=== PATIENT | male | born 1950 | race Caucasian/White ===

== ENCOUNTER 2019-02-01 16:40 | Emergency (ER) | payer MEDICARE, OTHER ==
[~2019-02-01] VITALS: Ht 175.3 cm; Wt 103.9 kg
--- OUTSIDE RECORDS SUMMARY | ~2019-02-01 | XMS | Encounter Summary ---
Demographics + + + | Address | [address] | | | [place] [address] | + + + | Home Phone | | + + + | Preferred Language | Unknown | + + + | Marital Status | Single | + + + | Pentecostalism Affiliation | 1059 | + + + | Race | Unknown | + + + | Ethnic Group | Unknown | + + + Author + + + | Author | [facility] | + + + | Organization | [facility] | + + + | Address | Unknown | + + + | Phone | Unavailable | + + + Support + + +---------+ + | Name | Relationship | Address | Phone | + + +---------+ + | None,Provided | ECON | Unknown | | + + +---------+ + Care Team Providers + +------+ + | Care Bookkeepers Supervisor Name | Role | Phone | + +------+ + | Joe Henry | PCP | | + +------+ + Encounter Details +--------+ + + + + | Date | Type | Department | Care Team | Description | +--------+ + + + + | 01/19/ | Documentati | [facility] | Ben Pope, | | | 2019 | on Only | [facility] Center | MD Radha Toussaint | | | | | Patient Access [id number] | [address] | | | | | [facility] [place], [address] | | | | | [place] [address] | | | | | | [phone] | | | +--------+ + + + + Social History + +-------+ +--------+------+ | Tobacco Use | Types | Packs/Day | Years | Date | | | | | Used | | + +-------+ +--------+------+ | Never Assessed | | | | | + +-------+ +--------+------+ + + + | Sex Assigned at | Date Recorded | | | | + + + | Not on file | | + + + as of this encounter Plan of Treatment Not on fileas of this encounter Visit Diagnoses Not on filein this encounter"
--- OUTSIDE RECORDS SUMMARY | ~2019-02-01 | XMS | Encounter Summary ---
Demographics + + + | Address | [address] | | | [place] [address] | + + + | Home Phone | | + + + | Preferred Language | Unknown | + + + | Marital Status | Single | + + + | Sabianism Affiliation | 1059 | + + + | Race | Unknown | + + + | Ethnic Group | Unknown | + + + Author + + + | Author | [facility] | + + + | Organization | [facility] | + + + | Address | Unknown | + + + | Phone | Unavailable | + + + Support + + +---------+ + | Name | Relationship | Address | Phone | + + +---------+ + | None,Provided | ECON | Unknown | | + + +---------+ + Care Team Providers + +------+ + | Care Dynamics Ax Solution Architect Name | Role | Phone | + +------+ + | Henry Diaz DO | PCP | | + +------+ + Reason for Referral MRI/CAT Scan (Routine) + +--------+ + + + + | Status | Reason | Specialty | Diagnoses / | Referred By | Referred To | | | | | Procedures | Contact | Contact | + +--------+ + + + + | Pending | | Radiology | Diagnoses | Niko, | [facility] [address] | | Review | | | Gross | Ben Perea MD | [address] | | | | | hematuria | [address] | | | | | Procedures | [place] | [place], [place] | | | | | CT urogram | Bl[address] | [address] Phone: | | | | | abdomen | [place], [place] | [phone] | | | | | pelvis with | [address] | | | | | | and without | Phone: | | | | | | contrast 3D | [phone] | | | | | | reconstructi | Fax: | | | | | | on images | [phone] | | + +--------+ + + + + MRI/CAT Scan (Routine) + +--------+ + + + + | Status | Reason | Specialty | Diagnoses / | Referred By | Referred To | | | | | Procedures | Contact | Contact | + +--------+ + + + + | Pending | | Radiology | Diagnoses | Niko, | [facility] [address] | | Review | | | Gross | Ben Perea MD | [address] | | | | | hematuria | [address] | | | | | Procedures | [place] | [place], [place] | | | | | CT urogram | Blvd | [address] Phone: | | | | | abdomen | [place], [place] | [phone] | | | | | pelvis with | [address] | | | | | | and without | Phone: | | | | | | contrast 3D | [phone] | | | | | | reconstructi | Fax: | | | | | | on images | [phone] | | + +--------+ + + + + Reason for Visit MRI/CAT Scan (Routine) + +--------+ + + + + | Status | Reason | Specialty | Diagnoses / | Referred By | Referred To | | | | | Procedures | Contact | Contact | + +--------+ + + + + | Pending | | Radiology | Diagnoses | Niko, | [facility] [address] | | Review | | | Gross | Ben Perea MD | [address] | | | | | hematuria | [address] | | | | | Procedures | [place] | [place], [place] | | | | | CT urogram | Blvd | [address] Phone: | | | | | abdomen | [place], [place] | [phone] | | | | | pelvis with | [address] | | | | | | and without | Phone: | | | | | | contrast 3D | [phone] | | | | | | reconstructi | Fax: | | | | | | on images | [phone] | | + +--------+ + + + + Encounter Details +--------+ + + + + | Date | Type | Department | Care Team | Description | +--------+ + + + + | 01/19/ | Hospital | [facility] | Ben Pope, | Altagracia hematuria | | 2019 | Encounter | [facility] | MD Radha Toussaint | | | | | CT [address] | [place], [place] | | | | | [address] | [id number] | | | | | [place] [address] | | | | | | [phone] | | | +--------+ + + + [...] Treatment Not on fileas of this encounter Procedures + +--------+ + + + | Procedure Name | Priori | Date/Time | Associated Diagnosis | Comments | | | ty | | | | + +--------+ + + + | CT UROGRAM ABDOMEN | Routin | 01/19/2019 | Gross hematuria | Results for this | | PELVIS W WO CONTRAST | e | 8:02 AM | | procedure are in the | | | | PDT | | results section. | + +--------+ + + + | POC CREATININE | Routin | 01/19/2019 | | Results for this | | | e | 7:31 AM | | procedure are in the | | | | PDT | | results section. | + +--------+ + + + in this encounter Results CT urogram abdomen pelvis with and without contrast 3D reconstruction images (01/19/2019 8 :02 AM) + + + | Impressions | Performed At | + + + | 1. No urinary calculus, hydronephrosis or urinary mass identified. | [facility] | | 2. Bilateral renal cysts which extend into the pelvis and cause mass | RADIOLOGY | | effect on the upper collecting system. 3. Prostatomegaly. Signed by: | | | Cristy Kc Jade Sign Date/Time: 01/19/2019 4:24 PM | | + + + + + + | Narrative | Performed At | + + + | CT ABDOMEN AND PELVIS WITHOUT AND WITH CONTRAST (CPT) CT UROGRAPHY | [facility] | | CLINICAL INFORMATION: Gross hematuria COMPARISON: None PROCEDURE: | RADIOLOGY | | Axial images through the abdomen and pelvis with no intravenous | | | contrast. Subsequent images of the abdomen and pelvis during | | | intravenous administration of 125mL Omnipaque 350 in two divided | | | doses, with a 9 minute delay after the first dose. No oral contrast | | | was administered. Multiplanar reconstructions. At least one of the | | | following CT dose optimization techniques were used: Automated | | | exposure control; Adjustment of mA and/or kV according to patient | | | size; Use of iterative reconstruction technique. FINDINGS: KIDNEYS, | | | URETERS AND BLADDER: No solid mass, cortical scarring or asymmetric | | | enhancement in the kidneys. No hydronephrosis. No calculus or mass in | | | the collecting system, ureters or bladder. Bilateral cortical and | | | parapelvic cysts cause mass effect on the calices and renal pelves | | | which remain nondilated. LUNG BASES: No significant pulmonary | | | abnormality. No pleural effusion or pneumothorax. ABDOMEN Liver and | | | Biliary: No gallbladder or biliary abnormality. No significant liver | | | abnormality. Pancreas, Spleen and Adrenals: No pancreatitis or | | | pancreatic mass. No splenomegaly, splenic mass or splenic hemorrhage. | | | No significant adrenal abnormality. ABDOMEN AND PELVIS Bowel: No | | | small bowel or colonic dilation or adjacent inflammation. Surgically | | | absent appendix. Colonic diverticulosis without diverticulitis. | | | Vessels: No significant abnormality in the aorta or its proximal | | | branches. No significant abnormality in the portal veins, mesenteric | | | veins or systemic veins. Lymph Nodes: No adenopathy. Peritoneum and | | | Retroperitoneum: No intraperitoneal free air, ascites or peritoneal | | | mass. No significant retroperitoneal abnormality. PELVIS | | | Genitourinary: No pelvic mass and no significant urethral abnormality. | | | Prostatomegaly at 5.6 x 6.1 x 7.5 cm. BODY WALL Soft Tissues: No | | | bowel or inflamed fat containing hernia, mass or hemorrhage. Bones: | | | No acute fracture or vertebral end plate destruction. No lytic or | | | blastic lesion. | | + + + + + | Procedure Note | + + | Jong, Rad Results In 01/19/2019 4:[address] ABDOMEN AND PELVIS WITHOUT AND WITH | | CONTRAST (CPT)CT UROGRAPHYCLINICAL INFORMATION:Gross | | hematuriaCOMPARISON:NonePROCEDURE:Axial images through the abdomen and pelvis with no | | intravenouscontrast. Subsequent images of the abdomen and pelvis duringintravenous | | administration of 125mL Omnipaque 350 in two divided doses,with a 9 minute delay after | | the first dose. No oral contrast wasadministered. Multiplanar reconstructions.At least | | one of the following CT dose optimization techniques wereused: Automated exposure | | control; Adjustment of mA and/or kV accordingto patient size; Use of iterative | | reconstruction technique.FINDINGS:KIDNEYS, URETERS AND BLADDER: No solid mass, cortical | | scarring orasymmetric enhancement in the kidneys. No hydronephrosis. No calculusor mass | | in the collecting system, ureters or bladder. Bilateralcortical and parapelvic cysts | | cause mass effect on the calices andrenal pelves which remain nondilated.LUNG BASES: No | | significant pulmonary abnormality. No pleural effusionor pneumothorax.ABDOMENLiver and | | Biliary: No gallbladder or biliary abnormality. Nosignificant liver | | abnormality.Pancreas, Spleen and Adrenals: No pancreatitis or pancreatic mass. | | Nosplenomegaly, splenic mass or splenic hemorrhage. No significantadrenal | | abnormality.ABDOMEN AND PELVISBowel: No small bowel or colonic dilation or adjacent | | inflammation.Surgically absent appendix. Colonic diverticulosis | | withoutdiverticulitis.Vessels: No significant abnormality in the aorta or its | | proximalbranches. No significant abnormality in the portal veins, mesentericveins or | | systemic veins.Lymph Nodes: No adenopathy.Peritoneum and Retroperitoneum: No | | intraperitoneal free air, ascites orperitoneal mass. No significant retroperitoneal | | abnormality.PELVISGenitourinary: No pelvic mass and no significant urethral | | abnormality.Prostatomegaly at 5.6 x 6.1 x 7.5 cm.BODY WALLSoft Tissues: No bowel or | | inflamed fat containing hernia, mass orhemorrhage.Bones: No acute fracture or vertebral | | end plate destruction. No lyticor blastic lesion.IMPRESSION:1. No urinary calculus, | | hydronephrosis or urinary mass identified.2. Bilateral renal cysts which extend into the | | pelvis and cause masseffect on the upper collecting system.3. Prostatomegaly.Signed by: | | Cristy Kc JadeSign Date/Time: 01/19/2019 4:24 PM | |ABDOMEN AND PELVIS | |Bowel: No small bowel or colonic dilation or adjacent inflammation. | |Surgically absent appendix. Colonic diverticulosis without | |diverticulitis. | |Vessels: No significant abnormality in the aorta or its proximal | |branches. No significant abnormality in the portal veins, mesenteric | |veins or systemic veins. | |Lymph Nodes: No adenopathy. | |Peritoneum and Retroperitoneum: No intraperitoneal free air, ascites or | |peritoneal mass. No significant retroperitoneal abnormality. | |PELVIS | |Genitourinary: No pelvic mass and no significant urethral abnormality. | |Prostatomegaly at 5.6 x 6.1 x 7.5 cm. | |BODY WALL | |Soft Tissues: No bowel or inflamed fat containing hernia, mass or | |hemorrhage. | |Bones: No acute fracture or vertebral end plate destruction. No lytic | |or blastic lesion. | |IMPRESSION: | |1. No urinary calculus, hydronephrosis or urinary mass identified. | |2. Bilateral renal cysts which extend into the pelvis and cause mass | |effect on the upper collecting system. | |3. Prostatomegaly. | |Signed by: Cristy Kc Jade | |Sign Date/Time: 01/19/2019 4:24 PM | + + + + + + + | Performing | Address | City/State/Zipcode | Phone Number | | Organization | | | | + + + + + | [facility] | [address] | [place] [address] | | + + + + + POC creatinine (01/19/2019 7:31 AM) + + + + + | Component | Value | Ref Range | Performed At | + + + + + | POC CREATININE | 1.1 | 0.7 - 1.5 mg/dL | [facility] | + + + + + | Estimated GFR (Calc) | >60Comment: GFR <60: | mL/min/1.73m2 | [facility] | | | CHRONIC KIDNEY DISEASE, | | | | | IF FOUND OVER A 3 MONTH | | | | | PERIOD.GFR <15: KIDNEY | | | | | FAILURE.FOR | | | | | AMERICANS, MULTIPLY THE | | | | | CALCULATED GFR BY | | | | | 1.210.This eGFR is | | | | | calculated using the | | | | | MDRD IDMS traceable | | | | | equation.Testing | | | | | performed at [facility];[address];[place], [place] | | | | | [address] | | | + + + + + + + + + + | Performing | Address | City/State/Zipcode | Phone Number | | Organization | | | | + + + + + | [facility] | [address] | [place] [address] | | + + + + + in this encounter Visit Diagnoses + + | Diagnosis | + + | Gross hematuria | + + Administered Medications + +--------+ +---------+------+------+ | Medication Order | MAR | Action | Dose | Rate | Site | | | Action | Date | | | | + +--------+ +---------+------+------+ | iohexol (OMNIPAQUE 350) 350 | Given | | 125 mLs | | | | mg/mL injection 125 mL 125 mL, | | 9 07:41 | | | | | Intravenous, Img Once PRN, Other, | | PDT | | | | | Starting [facility] 01/19/19 at 0719, | | | | | | | For 1 dose | | | | | | + +--------+ +---------+------+------+ +---+---+ | | | +---+---+ in this encounter"
--- OUTSIDE RECORDS SUMMARY | ~2019-02-01 | XMS | Encounter Summary ---
Demographics + + + | Address | [address] | | | [place] [address] | + + + | Home Phone | | + + + | Preferred Language | Unknown | + + + | Marital Status | Single | + + + | Latter-Day Affiliation | 1059 | + + + | Race | Unknown | + + + | Ethnic Group | Unknown | + + + Author + + + | Author | [facility] | + + + | Organization | [facility] | + + + | Address | Unknown | + + + | Phone | Unavailable | + + + Support + + +---------+ + | Name | Relationship | Address | Phone | + + +---------+ + | None,Provided | ECON | Unknown | | + + +---------+ + Care Team Providers + +------+ + | Care Yard Coordinator Name | Role | Phone | + [...] | Radiology | Diagnoses | Niko, | [facility] [address] | | Review | | | Gross | Ben Perea MD | [address] | | | | | hematuria | [address] | | | | | Procedures | [place] | [place], [place] | | | | | CT urogram | Blvd | [address] Phone: | | | | | abdomen | [place], [place] | [phone] | | | | | pelvis with | [address] | | | | | | and without | Phone: | | | | | | contrast 3D | [phone] | | | | | | reconstructi | Fax: | | | | | | on images | [phone] | | + +--------+ + + + + MRI/CAT Scan (Routine) + +--------+ + + + + | Status | Reason | Specialty | Diagnoses / | Referred By | Referred To | | | | | Procedures | Contact | Contact | + +--------+ + + + + | Pending | | Radiology | Diagnoses | Niko, | [facility] [address] | | Review | | | Gross | Ben Perea MD | [address] | | | | | hematuria | [address] | | | | | Procedures | [place] | [place], [place] | | | | | CT urogram | Blvd | [address] Phone: | | | | | abdomen | [place], [place] | [phone] | | | | | pelvis with | [address] | | | | | | and without | Phone: | | | | | | contrast 3D | [phone] | | | | | | reconstructi | Fax: | | | | | | on images | [phone] | | + +--------+ + + + + Reason for Visit MRI/CAT Scan (Routine) + +--------+ + + + + | Status | Reason | Specialty | Diagnoses / | Referred By | Referred To | | | | | Procedures | Contact | Contact | + +--------+ + + + + | Pending | | Radiology | Diagnoses | Niko, | [facility] | | Review | | | Gross | Ben Perea MD | [address] | | | | | hematuria | [address] | | | | | Procedures | [place] | [place], [place] | | | | | CT urogram | Blvd | [address] Phone: | | | | | abdomen | [place], [place] | [phone] | | | | | pelvis with | [address] | | | | | | and without | Phone: | | | | | | contrast 3D | [phone] | | | | | | reconstructi | Fax: | | | | | | on images | [phone] | | + +--------+ + + + + Encounter Details +--------+ + + + + | Date | Type | Department | Care Team | Description | +--------+ + + + + | 01/19/ | Hospital | [facility] | Ben Pope, | Altagracia hematuria | | 2019 | Encounter | [facility] | MD Radha Toussaint | | | | | CT [address] | [place], [place] | | | | | [address] | [id number] | | | | | [place] [address] | | | | | | [phone] | | | +--------+ + + + [...] [facility] | [address] | [place] [address] | | + + + + + [...] | | | | | performed at [facility];[address] | | | | [address];[place], [place] | | | | | [address] | | | + + + + + + + + + + | Performing | Address | City/State/Zipcode | Phone Number | | Organization | | | | + + + + + | [facility] | [address] | [place] [address] | | + + + + + [...] PDT | | | | | Starting [facility] 01/19/19 at 0719, | | | | | | | For 1 dose | | | | | | + +--------+ +---------+------+------+ +---+---+ | | | +---+---+ in this encounter"
--- OUTSIDE RECORDS SUMMARY | ~2019-02-01 | XMS | Encounter Summary ---
Demographics + + + | Address | [address] | | | [place] [address] | + + + | Home Phone | | + + + | Preferred Language | Unknown | + + + | Marital Status | Single | + + + | Yazdanism Affiliation | 1059 | + + + | Race | Unknown | + + + | Ethnic Group | Unknown | + + + Author + + + | Author | [facility] | + + + | Organization | [facility] | + + + | Address | Unknown | + + + | Phone | Unavailable | + + + Support + + +---------+ + | Name | Relationship | Address | Phone | + + +---------+ + | None,Provided | ECON | Unknown | | + + +---------+ + Care Team Providers + +------+ + | Care Radiology Manager Name | Role | Phone | + [...] | Radiology | Diagnoses | Niko, | [facility] [address] | | Review | | | Gross | Ben Perea MD | [address] | | | | | hematuria | [address] | | | | | Procedures | [place] | [place], [place] | | | | | CT urogram | Blvd | [address] Phone: | | | | | abdomen | [place], [place] | [phone] | | | | | pelvis with | [address] | | | | | | and without | Phone: | | | | | | contrast 3D | [phone] | | | | | | reconstructi | Fax: | | | | | | on images | [phone] | | + +--------+ + + + + Encounter Details +--------+ + + + + | Date | Type | Department | Care Team | Description | +--------+ + + + + | 01/09/ | Ancillary | [facility] | Ben Pope, | Altagracia hematuria | | 2019 | Orders | [facility] | MD Radha Toussaint | | | | | CT [address] | Blvd [place], [place] | | | | | [facility] [address] | [phone] | | | | | [place] [address] | | | | | | [phone] | | | +--------+ + + + [...] Treatment Not on fileas of this encounter Results CT urogram abdomen pelvis with and without contrast 3D reconstruction images (01/19/2019 8 :02 AM) + + + | Impressions | Performed At | + + + | 1. No urinary calculus, hydronephrosis or urinary mass identified. | [facility] | | 2. Bilateral renal cysts which [...] PELVIS WITHOUT AND WITH | | CONTRAST ([facility])CT UROGRAPHYCLINICAL INFORMATION:Gross | | hematuriaCOMPARISON:NonePROCEDURE:Axial images through [...] + + | [facility] | [address] | [place] [address] | | + + + + + in this encounter Visit Diagnoses + + | Diagnosis | + + | Gross hematuria | + +"
--- OUTSIDE RECORDS SUMMARY | ~2019-02-01 | XMS | Clinical Summary ---
Demographics + + + | Address | [address] | | | [place] [address] | + + + | Home Phone | | + + + | Preferred Language | Unknown | + + + | Marital Status | | + + + | Congregation Affiliation | 1059 | + + + | Race | Unknown | + + + | Ethnic Group | Unknown | + + + Author + + + | Author | [facility] | | | and [place] | + + + | Organization | [facility] | | | and [place] | + + + | Address | Unknown | + + + | Phone | Unavailable | + + + Support + + +---------+ + | Name | Relationship | Address | Phone | + + +---------+ + | Yue Thomson | ECON | Unknown | | + + +---------+ + | None,Provided | ECON | Unknown | | + + +---------+ + Care Team Providers + +------+ + | Care Notching Machine Operator Name | Role | Phone | + +------+ + PP | Unavailable | + +------+ + Allergies + + + +--------+ + | Active Allergy | Reactions | Severity | Noted | Comments | | | | | Date | | + + + +--------+ + | Griseofulvin | | | | | | Microsize | | | | | + + + +--------+ + | Penicillins | | | | | + + + +--------+ + | Sulfa Antibiotics | | | | | + + + +--------+ + Medications + + + +---------+------+------+-------+ | Medication | Sig | Dispensed | Refills | Star | End | Statu | | | | | | t | Date | s | | | | | | Date | | | + + + +---------+------+------+-------+ | lamotrigine | 1/2 twice dialy | | 0 | 09/1 | | Activ | | (LAMICTAL) 200 MG | | | | 3/20 | | e | | tablet | | | | 12 | | | + + + +---------+------+------+-------+ | cholecalciferol | Take 1,000 Units by | | 0 | 09/1 | | Activ | | (CVS VITAMIN D3) | mouth Daily. | | | 3/20 | | e | | 1000 UNITS CAPS | | | | 12 | | | + + + +---------+------+------+-------+ | beta carotene | Take 25,000 Units by | | 0 | 09/1 | | Activ | | 62837 UNITS capsule | mouth Daily. | | | 3/20 | | e | | | | | | 12 | | | + + + +---------+------+------+-------+ | Sumner-3 Fatty | three daily | | 0 | 09/1 | | Activ | | Acids (FISH OIL | | | | 3/20 | | e | | BURP-LESS) 1200 MG | | | | 12 | | | | CAPS | | | | | | | + + + +---------+------+------+-------+ | dutasteride | Take 0.5 mg by mouth | | 0 | 09/1 | | Activ | | (AVODART) 0.5 mg | Daily. | | | 3/20 | | e | | capsule | | | | 12 | | | + + + +---------+------+------+-------+ | testosterone | as needed | | 0 | 09/1 | | Activ | | (ANDROGEL) 2.5 g gel | | | | 3/20 | | e | | | | | | 12 | | | + + + +---------+------+------+-------+ | sildenafil | Take 100 mg by mouth | | 0 | 09/1 | | Activ | | (VIAGRA) 100 MG | as needed. 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 | + + Last Filed Vital Signs + + + + | Vital Sign | Reading | Time Taken | + + + + | Blood Pressure | 118/66 | 03/02/2012 0000 PDT | + + + + | Pulse | - | - | + + + + | Temperature | - | - | + + + + | Respiratory Rate | - | - | + + + + | Oxygen Saturation | - | - | + + + + | Inhaled Oxygen | - | - | | Concentration | | | + + + + | Weight | 114.5 kg (252 lb 8 | 03/02/2012 0000 PDT | | | oz) | | + + + + | Height | 175.3 cm (5' 9") | 11/23/2011 0000 PST | + + + + | Body Mass Index | 37.29 | 11/23/2011 0000 PST | + + + + Plan of Treatment + + + + + | Health Maintenance | Due Date | Last Done | Comments | + + + + + | Vaccine: | | | | | Dtap/Tdap/Td (1 - | 8 | | | | Tdap) | | | | + + + + + | Vaccine: Zoster (1 | | | | | of 2) | 9 | | | + + + + + | Vaccine: | | | | | Pneumococcal 65+ | 4 | | | | Low/Medium Risk (1 | | | | | of 2 - PCV13) | | | | + + + + + | Vaccine: Influenza | | | | | (Season Ended) | 9 | | | + + + + + Results Not on filefrom Last 3 Months Advance Directives Patient has advance care planning documents on file. For more information, please contact:[facility] [place] [address]
--- OUTSIDE RECORDS SUMMARY | ~2019-02-01 | XMS | Encounter Summary ---
Demographics + + + | Address | [address] | | | [place] [address] | + + + | Home Phone | | + + + | Preferred Language | Unknown | + + + | Marital Status | Single | + + + | Bahai Affiliation | 1059 | + + + | Race | Unknown | + + + | Ethnic Group | Unknown | + + + Author + + + | Author | [facility] [employer] [facility] | + + + | Organization | [facility] | + + + | Address | Unknown | + + + | Phone | Unavailable | + + + Support + + +---------+ + | Name | Relationship | Address | Phone | + + +---------+ + | None,Provided | ECON | Unknown | | + + +---------+ + Care Team Providers + +------+ + | Care Contact Agent Name | Role | Phone | + +------+ + | Joe Henry | PCP | | + +------+ + Encounter Details +--------+ + + + + | Date | Type | Department | Care Team | Description | +--------+ + + + + | 01/19/ | Documentati | [facility] | Ben Pope, | | | 2019 | on Only | [facility] Center | MD Radha Toussaint | | | | | Patient Access [id number] | [place] | | | | | [address] [facility] [address] | | | | | [place] [address] | | | | | | [phone] | | | +--------+ + + + [...]
--- OUTSIDE RECORDS SUMMARY | ~2019-02-01 | XMS | Clinical Summary ---
Demographics + + + | Address | [address] | | | [place] [address] | + + + | Home Phone | | + + + | Preferred Language | Unknown | + + + | Marital Status | Single | + + + | Hinduism Affiliation | 1059 | + + + | Race | Unknown | + + + | Ethnic Group | Unknown | + + + Author + + + | Author | [facility] | + + + | Organization | [facility] [employer] [facility] | + + + | Address | Unknown | + + + | Phone | Unavailable | + + + Support + + +---------+ + | Name | Relationship | Address | Phone | + + +---------+ + | None,Provided | ECON | Unknown | | + + +---------+ + Care Team Providers + +------+ + | Care Internal Medicine Nurse Practitioner Name | Role | Phone | + +------+ + | Henry Diaz DO | PP | | + +------+ + Allergies Not on File Current Medications Not on file Active Problems Not on file Encounters +--------+ + + + + | Date | Type | Specialty | Care Team | Description | +--------+ + + + + | 01/19/ | Hospital | | Ben Pope, | Gross hematuria | | 2018 | Encounter | | MD | | +--------+ + + + + | 01/19/ | Documentati | | Ben Pope, | | | 2018 | on Only | | MD | | +--------+ + + + + | 01/09/ | Ancillary | | Ben Pope T, | Gross hematuria | | 2019 | Orders | | MD | | +--------+ + + + + from Last 3 Months Social History + +-------+ +--------+------+ | Tobacco [...] on file | | + + + Plan of Treatment Not on file Procedures + +--------+ + + + | [...] section. | + +--------+ + + + from Last [address] urogram abdomen pelvis with and without contrast 3D reconstruction images (01/19/2019 8 :02 AM) + + + | Impressions | Performed At | + + + | 1. No urinary calculus, hydronephrosis or urinary mass identified. | [facility] | | 2. Bilateral renal cysts which extend into the pelvis and cause mass | [facility] | | effect on the upper collecting system. 3. Prostatomegaly. Signed by: | | | Cristy Kc, Steffany Sign Date/Time: 01/19/2019 4:24 PM | | + + + + + + | Narrative | Performed At | + + + | CT ABDOMEN AND PELVIS WITHOUT AND WITH CONTRAST ([facility]) CT UROGRAPHY | [facility] | | CLINICAL INFORMATION: Gross hematuria COMPARISON: [...] | + + + + + | [facility] | [address] | [place] [address] | | + + + + + POC creatinine (01/19/2019 7:31 AM) + + + + + | Component | Value | Ref Range | Performed At | + + + + + | POC CREATININE | 1.1 | 0.7 - 1.5 mg/dL | [facility] | + + + + + | Estimated GFR (Calc) | >60Comment: GFR <60: | mL/min/1.73m2 | [facility] | | | CHRONIC KIDNEY DISEASE, [...] | | | | | performed at [facility];[address] | | | | | [address] [facility];[place], [place] | | | | | [address] | | | + + + + + + + + + + | Performing | Address | City/State/Zipcode | Phone Number | | Organization | | | | + + + + + | [facility] | [address] | [place] [address] | | + + + + + from Last 3 Months Insurance + +--------+ +------+-------+ + | Payer | Benefi | Subscriber | Type | Phone | Address | | | t Plan | ID | | | | | | / | | | | | | | Group | | | | | + +--------+ +------+-------+ + | MEDICARE | MEDICA | [id number] | | | [address] | | | RE | | | | [place] [address] | | | IP-OP | | | | | + +--------+ +------+-------+ + | COMMERCIAL OTHER | COMMER | [id number] | | | | | | CIAL | | | | | | | GENERI | | | | | | | C PLAN | | | | | + +--------+ +------+-------+ + + +--------+ +--------+ + + | Guarantor Name | Accoun | Relation to | Date | Phone | Billing Address | | | t Type | Patient | of | | | | | | | | | | + +--------+ +--------+ + + | TEJINDER BUSH | Person | Self [birth year] Home: | [address] | | [address]/Fam | | 1950 | [phone] | [place] [address] | | | mela | | | [phone] | | + +--------+ +--------+ + +"
--- OUTSIDE RECORDS SUMMARY | ~2019-02-01 | XMS | Encounter Summary ---
Demographics + + + | Address | [address] | | | [place] [address] | + + + | Home Phone | | + + + | Preferred Language | Unknown | + + + | Marital Status | Single | + + + | Mormonism Affiliation | 1059 | + + + | Race | Unknown | + + + | Ethnic Group | Unknown | + + + Author + + + | Author | [facility] | + + + | Organization | [facility] [facility] | + + + | Address | Unknown | + + + | Phone | Unavailable | + + + Support + + +---------+ + | Name | Relationship | Address | Phone | + + +---------+ + | None,Provided | ECON | Unknown | | + + +---------+ + Care Team Providers + +------+ + | Care Pricing/Signage Team Member Name | Role | Phone | + [...] | Radiology | Diagnoses | Niko, | [facility] [address] | | Review | | | Gross | Ben Perea MD | [address] | | | | | hematuria | [address] | | | | | Procedures | Norbert | [place], [place] | | | | | CT urogram | Blvd | [address] Phone: | | | | | abdomen | [place], [place] | [phone] | | | | | pelvis with | [address] | | | | | | and without | Phone: | | | | | | contrast 3D | [phone] | | | | | | reconstructi | Fax: | | | | | | on images | [phone] | | + +--------+ + + + + Encounter Details +--------+ + + + + | Date | Type | Department | Care Team | Description | +--------+ + + + + | 01/09/ | Ancillary | [facility] | Ben Pope, | Altagracia hematuria | | 2019 | Orders | [facility] | MD Rahda Toussaint | | | | | CT [address] [place], [place] | | | | | [facility] [address] | [id number] | | | | | [place] [address] | | | | | | [phone] | | | +--------+ + + + [...] PELVIS WITHOUT AND WITH | | CONTRAST ([facility])CT UROGRAPHYCLINICAL INFORMATION:Gross | | hematuriaCOMPARISON:NonePROCEDURE:Axial images through [...] [facility] | [address] | [place] [address] | | + + + + + in this encounter Visit Diagnoses + + | Diagnosis | + + | Gross hematuria | + +"
--- OUTSIDE RECORDS SUMMARY | ~2019-02-01 | XMS | Clinical Summary ---
Demographics + + + | Address | [address] | | | [place] [address] | + + + | Home Phone | | + + + | Preferred Language | Unknown | + + + | Marital Status | Single | + + + | Spiritism Affiliation | 1059 | + + + | Race | Unknown | + + + | Ethnic Group | Unknown | + + + Author + + + | Author | [facility] [employer] [facility] | + + + | Organization | [facility] [employer] [facility] | + + + | Address | Unknown | + + + | Phone | Unavailable | + + + Support + + +---------+ + | Name | Relationship | Address | Phone | + + +---------+ + | None,Provided | ECON | Unknown | | + + +---------+ + Care Team Providers + +------+ + | Care Water Pumper Name | Role | Phone | + [...] ABDOMEN AND PELVIS WITHOUT AND WITH CONTRAST ([facility]) CT UROGRAPHY | [facility] | | CLINICAL INFORMATION: Gross hematuria [...] | + + + + + | [facility] | [address] | [place] [address] | | + + + + + POC creatinine (01/19/2019 7:31 AM) + + + + + | Component | Value | Ref Range | Performed At | + + + + + | POC CREATININE | 1.1 | 0.7 - 1.5 mg/dL | [facility] | + + + + + | Estimated GFR (Calc) | >60Comment: GFR <60: | mL/min/1.73m2 | [facility] | | | CHRONIC KIDNEY DISEASE, [...] | | | | performed at [facility];[address] | | | | | [address] [facility];[place], [place] | | | | | [address] | | | + + + + + + + + + + | Performing | Address | City/State/Zipcode | Phone Number | | Organization | | | | + + + + + | [facility] | [address] | [place] [address] | | + + + + + [...] +------+-------+ + | MEDICARE | MEDICA | [id number] | | | [address] | | | RE | | | | [place] [phone] | | | IP-OP | | | | | + +--------+ +------+-------+ + | COMMERCIAL OTHER | COMMER | [id number] | | | | | | CIAL [...] al/Fam | | 1950 | [phone] | [place] [address] | | | mela | | | [address] | | + +--------+ +--------+ + +"
--- OUTSIDE RECORDS SUMMARY | ~2019-02-01 | XMS | Clinical Summary ---
Demographics + + + | Address | [address] | | | [place] [address] | + + + | Home Phone | | + + + | Preferred Language | Unknown | + + + | Marital Status | | + + + | Alevism Affiliation | 1059 | + + + | Race | Unknown | + + + | Ethnic Group | Unknown | + + + Author + + + | Author | [facility] | | | and [place] | + + + | Organization | [facility] | | | and [place] | [...] Team Providers + +------+ + | Care Export Specialist Name | Role | Phone | + [...] | 09/1 | | Activ | | 28049 UNITS capsule | mouth Daily. | | | 3/20 | | e | | | | | | 12 | | | + + + +---------+------+------+-------+ | Leslie-3 Fatty | three daily | | 0 [...] documents on file. For more information, please contact:[facility] [place] [address]
[~2019-02-01 16:40] MED LIST: LAMICTAL200 MG PO; LISINOPRIL-HCT1 EAC2 PO; VITAMIN D5000 UNIT PO
== END 2019-02-01 18:30 | disposition home or self-care (01) ==
LOC: ED 16:40
DX: M79.672 Pain in left foot (principal); Z88.2 Allergy status to sulfonamides; Z88.8 Allergy status to other drugs, medicaments and biological substances
CPT/HCPCS: 73630; 99283

== ENCOUNTER 2025-04-04 07:10 | Day surgery (SDC) | payer MEDICARE, OTHER ==
[2025-03-28 11:00] VITALS: BP 100/62
[~2025-04-04] VITALS: Ht 175.3 cm; Wt 104.5 kg
[~2025-04-04 07:10] MED LIST changes: +AMLODIPINE BESY10 MG PO; +ATORVASTATIN CA20 MG PO; +BOSWELLIA SERRA10 GM MISC; +CANDICIDAL CAP1 EACH PO; +GRAPE SEED EXTR50 MG PO; +HYDROCHLOROTHIA25 MG PO; +IBLOOD GLUCOSE TEST STRIP 1 EA TEST VI PRN; +LACTATED RINGER'S 1,000 ML IV SCH; +LIDOCAINE HCL 1% 5 ML SDV INJ ONE; +LISINOPRIL-HCT1 EAC1 PO; +LOSARTAN POTASS50 MG PO; +LOSARTAN-HCTZ1 EAC1 PO; +RESVERATROL250 MG PO; +VITAMIN D350 MCG PO
[2025-04-04 07:22] VITALS: BP 130/65
[2025-04-04] MEDS ORDERED: KLOR-CON M2020 MEQ PO (07:26)
--- NOTE | 2025-04-04 07:30 | NUR ---
PT NOT AVAILABLE FOR VISIT. PROVIDED PRAYER.
[2025-04-04] MEDS ORDERED: VANCOMYCIN HCL 1 GM in DEXTROSE 5% 250 ML IV SCH (07:32)
--- NOTE | 2025-04-04 07:47 | NUR ---
[address] ADAMES IN REGARDS TO PT PARTIAL KNEE REPLACEMENT. SPOKE ABOUT PENECILLIN ALLERGY. DR ADAMES GIVES VERBAL ORDER FOR 1G OG VANCOMYCIN IV ONCE NOW BEFORE PROCEDURE. ORDER PUT INTO EMAR. 0745 INFUSION STARTED TO BE COMPLETE OVER 1 HOUR. S/S OF REACTION GONE OVER WITH PT. PT UNDERSTANDING TO USE CALL LIGHT IF REACTION HAPPENS.
[2025-04-04] MEDS ORDERED: GLUCAGON,HUMAN RECOMBINANT 1 MG/ML VIAL ONE (07:54)
--- NOTE | 2025-04-04 09:18 | NUR ---
04/04/25 0918 Jade Mirza 0973-PATIENT ARRIVED TO PACU ON RA RR EVEN. PATIENT NONAROUSABLE LAYING LEFT LATERAL ABDOMEN SOFT. SR HR 60'S. IVF INFUSINGRA 94% RR EVEN.
[2025-04-04 09:50] VITALS: BP 117/53
--- NOTE | 2025-04-05 08:32 | OR ---
[facility] [address] [place], [place] [address] Signed DATE OF OPERATION: 04/04/2025 SURGEON: Maricarmen Pacheco DO PREOPERATIVE DIAGNOSIS: Colon cancer screening. POSTOPERATIVE DIAGNOSIS: Colon cancer screening with multiple large diverticulosis throughout the entire colon. PROCEDURE PERFORMED: Colonoscopy. ANESTHESIA: IV sedation. EBL: None. DRAINS: None. COMPLICATIONS: None. DESCRIPTION OF PROCEDURE: The patient was brought to the GI lab, placed in supine position. After induction of IV sedation, the patient was placed in left lateral position and padded to the satisfaction of anesthesia. Digital rectal exam was performed. Prostate was noted to be of normal size and shape without nodularities. The Olympus video colonoscope was then introduced into the rectum, rectosigmoid, sigmoid colon, descending colon, past the splenic flexure, transverse colon, past hepatic flexure, into the ascending colon and the cecum. This was done under direct visualization. The colon was then fully insufflated and the scope was then withdrawn. The ascending colon and cecum had scattered diverticula, but no other intrinsic or extrinsic masses appreciated. Scope was brought back to the past the hepatic flexure, transverse colon. No intrinsic or extrinsic masses were noted. Multiple diverticula were noted. No evidence of diverticulitis was appreciated. Scope was brought back to the splenic flexure. Essentially unremarkable. Descending colon and sigmoid colon and multiple large diverticula were noted. No other intrinsic or extrinsic masses were appreciated. No evidence of diverticulitis noted. The Electronically Signed By: MARICARMEN PACHECO DO 04/05/25 0832 PATIENT NAME: MAGUI BUSH OPERATIVE REPORT DATE OF : 48 REPORT #: [id number] PHYSICIAN: MARICARMEN PACHECO DO PCP: TAJ KIM DO REPORT IS CONFIDENTIAL AND NOT TO BE RELEASED WITHOUT AUTHORIZATION [facility] [address], [place] [address] Signed rectosigmoid had the same large diverticulum, but no other intrinsic or extrinsic masses were appreciated. The scope was then withdrawn. The patient tolerated the procedure well, taken to recovery room in satisfactory condition. DO ANGEL Gonzalez/TITI /[id number] Copies: ~ Electronically Signed By: MARICARMEN PACHECO DO 04/05/25 0832 PATIENT NAME: MAGUI BUSH OPERATIVE REPORT DATE OF : 48 REPORT #: [id number] PHYSICIAN: MARICARMEN PACHECO DO PCP: TAJ KIM DO REPORT IS CONFIDENTIAL AND NOT TO BE RELEASED WITHOUT AUTHORIZATION
== END 2025-04-04 09:55 | disposition home or self-care (01) ==
LOC: OPS 07:10 → DS 07:10 → OPS 08:30 → DS 09:50 → OPS 09:50
PROVIDERS: ATTEND Surgery
PROC: 0DJD8ZZ Inspection of Lower Intestinal Tract, Via Natural or Artificial Opening Endoscopic (ICD-10-PCS; principal; 2025-04-04 08:30)
DX: Z12.11 Encounter for screening for malignant neoplasm of colon (principal); K57.30 Diverticulosis of large intestine without perforation or abscess without bleeding; I10 Essential (primary) hypertension; F31.9 Bipolar disorder, unspecified; E66.9 Obesity, unspecified; Z68.35 Body mass index [BMI] 35.0-35.9, adult; Z79.899 Other long term (current) drug therapy; Z88.8 Allergy status to other drugs, medicaments and biological substances; Z88.2 Allergy status to sulfonamides; Z88.0 Allergy status to penicillin
CPT/HCPCS: 00811; J1610; J2704; J3370; J7060

== ENCOUNTER 2025-06-11 05:38 | Day surgery (SDC) | payer MEDICARE, OTHER ==
[~2025-06-11] VITALS: Ht 172.7 cm; Wt 101.0 kg
[~2025-06-11 05:38] MED LIST changes: -IBLOOD GLUCOSE TEST STRIP 1 EA TEST VI PRN; +KLOR-CON M2020 MEQ PO; -LIDOCAINE HCL 1% 5 ML SDV INJ ONE; +TYLENOL325 MG PO
[2025-06-11] MEDS ORDERED: Ropivacaine HCl 20 MG/10 ML AMP ONE (06:00)
[2025-06-11 06:09] VITALS: BP 136/63
[2025-06-11] MEDS ORDERED: Ropivacaine HCl 0.5% 30 ML VIAL ONE ×2 (06:29→08:18)
[2025-06-11] MEDS ORDERED: SODIUM CHLORIDE 0.9% 40 ML IV ONE (06:29)
[2025-06-11] MEDS ORDERED: LIDOCAINE HCL 2% 5 ML SDV ONE (06:29)
[2025-06-11] MEDS ORDERED: DEXAMETHASONE SOD PHOS 4 MG/ML VIAL ONE (06:29)
[2025-06-11] MEDS ORDERED: OXYCODONE HCL 5 MG TAB PO SCH (07:00)
[2025-06-11] MEDS ORDERED: LIDOCAINE HCL 1% 5 ML SDV INJ ONE (07:00)
[2025-06-11] MEDS ORDERED: OXYCODONE HCL 5 MG TAB PO PRN (07:00)
[2025-06-11] MEDS ORDERED: ROPIVACAINE IN 0.9% SOD CHL/PF 545 ML ELS.PMP.HR IRRIGATION SCH (07:00)
[2025-06-11] MEDS ORDERED: TRANEXAMIC ACID IN NACL,ISO-OS 1,000 MG/100 ML PIGGYBACK IV SCH ×2 (07:00→09:56)
[2025-06-11] MEDS ORDERED: GABAPENTIN 600 MG TAB PO SCH (07:00)
[2025-06-11] MEDS ORDERED: IBLOOD GLUCOSE TEST STRIP 1 EA TEST VI PRN ×2 (07:00→07:45)
[2025-06-11] MEDS ORDERED: INTRA-ARTICULAR ANALGESIC INJECTION XX SCH (07:00)
[2025-06-11] MEDS ORDERED: CEFAZOLIN SODIUM 2 GM in SODIUM CHLORIDE 0.9% 100 ML IV SCH ×2 (07:00→15:00)
[2025-06-11] MEDS ORDERED: PANTOPRAZOLE SODIUM 40 MG TABEC PO SCH (07:00)
[2025-06-11] MEDS ORDERED: NALOXONE HCL 0.4 MG SYR IV PRN (07:45)
[2025-06-11] MEDS ORDERED: fentaNYL citrate 50 MCG/ML SDV IV PRN (07:45)
[2025-06-11] MEDS ORDERED: SODIUM CHLORIDE 0.9% 20 ML IV ONE (08:18)
[2025-06-11] MEDS ORDERED: CEFUROXIME250 MG PO (08:25)
[2025-06-11] MEDS ORDERED: ASPIRIN325 MG PO (08:25)
[2025-06-11] MEDS ORDERED: OXYCODONE HCL5 M1 PO (08:26)
[2025-06-11] MEDS ORDERED: GABAPENTIN300 MG PO (08:26)
[2025-06-11] MEDS ORDERED: SENNA LAX8.6 MG PO (08:26)
--- NOTE | 2025-06-11 08:52 | NUR ---
06/11/25 0852 Cherelle Gaitan PATIENT FOLLOWS INSTRUCTIONS TO LIFT HEAD OFF PILLOW. SURGICAL BONNET AND OXYGEN MASK ARE REMOVED.
[2025-06-11] MEDS ORDERED: ASPIRIN 325 MG TAB PO SCH (09:00)
[2025-06-11 09:13] VITALS: BP 158/58
--- NOTE | 2025-06-11 09:27 | NUR ---
0910-PT BACK TO ROOM FROM PACU ON RA. RECEIVED REPORT FROM LIBERTY LYLE. PT IS AWAKE. RESP EVEN AND UNLABORED. RATES PAIN 5/10 AND THIS IS TOLERABLE AT THIS TIME. DENIES NAUSEA. ON-Q PUMP SET AT 4. CRYO CUFF IN PLACE AND RUNNING. PT IS DRINKING WATER AND EATING APPLESAUCE AND CRACKERS. AT BEDSIDE. NO OTHER NEEDS AT THIS TIME. CALL LIGHT WITHIN REACH.
[2025-06-11 10:15] VITALS: BP 132/57
--- NOTE | 2025-06-11 10:21 | NUR ---
1014-PT LAYING IN BED AWAKE. RESP EVEN AND UNLABORED. RATES PAIN 5/10 AND THIS IS TOLERABLE. ON-Q PUMP SET AT 4. CRYO CUFF IN PLACE AND RUNNING. AT BEDSIDE. REFILLED WATER. NO OTHER NEEDS AT THIS TIME. CALL LIGHT WITHIN REACH.
--- NOTE | 2025-06-11 11:00 | NUR ---
PT USED A URINAL AT THE BEDSIDE. PT VOIDS 400ML OF YELLOW URINE.
[2025-06-11 11:25] VITALS: BP 131/55
--- NOTE | 2025-06-11 11:33 | NUR ---
1125-PT LAYING IN BED AWAKE. RESP EVEN AND UNLABORED. PT STATES PAIN HAS DECREASED. ON-Q PUMP SET AT 4. CRYO CUFF IN PLACE AND RUNNING. AT BEDSIDE. NO OTHER NEEDS AT THIS TIME. CALL LIGHT WITHIN REACH. 1130-PHYSICAL THERAPY IN ROOM WITH PT.
--- NOTE | 2025-06-11 12:58 | OR ---
[facility] [address] [place], [place] [address] Signed DATE OF OPERATION: 06/11/2025 SURGEON: Yuliana Richards MD PREOPERATIVE DIAGNOSIS: Severe degenerative joint disease, right knee. POSTOPERATIVE DIAGNOSIS: Severe degenerative joint disease, right knee. PROCEDURE PERFORMED: Right total knee arthroplasty with Felipe. ICE CREAM MIXER: Dunia England PA-C. Dunia was present and critical for all portions of procedure. ANESTHESIA: Spinal. BLOOD LOSS: 175 mL. TOURNIQUET TIME: Zero. IMPLANTS: Keily Triathlon size 6/5 10 mm polyethylene and 35 mm patella. BRIEF HISTORY: Patrice is a 75-year-old gentleman with progressive worsening osteoarthritis that was nonresponsive to treatment with injections, bracing, and anti-inflammatories. He wished to proceed with operative treatment. Risks, benefits, and alternatives were discussed at length and he understood and wished to proceed. DESCRIPTION OF PROCEDURE: Once medical clearance was obtained, he was taken to the operating room. After adequate anesthesia, he was placed on the OR table with a hip bump. The leg was then prepped and draped in a standard sterile fashion. The knee was approached through a standard anterior midline incision. Skin flaps were developed medially and laterally. The low Electronically Signed By: YULIANA RICHARDS MD 06/11/25 1258 PATIENT NAME: MAGUI BUSH OPERATIVE REPORT DATE OF : 48 REPORT #: [id number] PHYSICIAN: YULIANA RICHARDS MD PCP: TAJ KIM DO REPORT IS CONFIDENTIAL AND NOT TO BE RELEASED WITHOUT AUTHORIZATION [facility] [address] [place], [place] [address] Signed mid vastus arthrotomy was performed and the infrapatellar fat pad was excised. The MCL was elevated as a sleeve around the posteromedial corner. Anterior horns of the menisci were transected and the ACL was transected. The PCL was found to be intact. The knee was then flexed and the navigation computer arrays were then placed in the distal femur and proximal tibia. The leg was registered with the computer followed by the fine anatomic points of the knee. The varus valgus testing was undertaken and slight adjustments were made to the position alignment of the prosthesis. The robot was then brought in. The four straight cuts and two angle cuts were made with care taken to protect the patellar tendon and MCL. The bone was removed as were any remaining osteophytes. The posterior osteophytes removed off the femur and the trials were positioned. Knee was taken from 0-120 degrees of flexion, was stable throughout. The patella was cut, sized, and drilled for 35 mm patella. The patella tracked well. The distal femoral drill holes were completed and the trials were removed. The proximal tibia was then completed using the keel punch followed by the four drill holes. The prosthesis was obtained. The tibia was impacted in position first followed by the polyethylene. The femur was then impacted. The knee was extended and loaded. The patella was clamped into position until the patella was seated fully. The knee was again taken through range of motion. The patella was stable. The periarticular soft tissues were injected with 100 mL ropivacaine with Toradol. The knee was irrigated with one bottle of Surgiphor followed by normal saline. The On-Q pain pump was percutaneously placed into the adductor canal from the suprapatellar pouch. The arthrotomy was then closed using a combination of #2 FiberWire, #2 Stratafix, the subcutaneous tissue with 0 Stratafix and the skin with 3-0 Stratafix. The wound was sealed with LiquiBand, Steri-Strips, dressed with Acticoat-7 dressing, ABD, and Delfino wrap. He tolerated the procedure well. All sponge, needle, and instrument counts were correct. Yuliana Richards MD BA/MODL /[id number] Electronically Signed By: YULIANA RICHARDS MD 06/11/25 1258 PATIENT NAME: MAGUI BUSH OPERATIVE REPORT DATE OF : 48 REPORT #: [id number] PHYSICIAN: YULIANA RICHARDS MD PCP: TAJ KIM DO REPORT IS CONFIDENTIAL AND NOT TO BE RELEASED WITHOUT AUTHORIZATION [facility] [address] [place] [address] Signed Copies: ~ Electronically Signed By: YULIANA RICHARDS MD 06/11/25 1258 PATIENT NAME: MAGUI BUSH OPERATIVE REPORT DATE OF : 48 REPORT #: [id number] PHYSICIAN: YULIANA RICHARDS MD PCP: TAJ KIM DO REPORT IS CONFIDENTIAL AND NOT TO BE RELEASED WITHOUT AUTHORIZATION
[2025-06-11 12:59] VITALS: BP 148/69
[2025-06-11] MEDS ORDERED: GABAPENTIN 300 MG CAP PO SCH (15:00)
[2025-06-11] MEDS ORDERED: ACETAMINOPHEN 500 MG TAB PO SCH (15:00)
--- NOTE | 2025-06-11 17:15 | NUR ---
1230-PT BACK TO ROOM FROM PHYSICAL THERAPY. PT WILL GET DRESSED WTIH IN ROOM. CALL LIGHT WITHIN REACH. 1235-PT EATING LUNCH.
--- NOTE | 2025-06-11 17:16 | NUR ---
LE 1305-WENT OVER DISCHARGE INSTRUCTIONS WITH PT AND . ALL QUESTIONS ANSWERED. WENT OVER POSTOP MEDICATIONS. LE 1308-PT AMBUALTES TO WHEELCHAIR AND RIDE PROVIDED TO FRONT OF HOSPITAL WHERE RIDE WAS WAITING WITH THE CAR.
[2025-06-11] MEDS ORDERED: SENNOSIDES 1 TAB PO SCH (21:00)
== END 2025-06-11 13:08 | disposition home or self-care (01) ==
LOC: DS 05:38
PROVIDERS: ATTEND Specialist
PROC: 0SRC0JZ Replacement of Right Knee Joint with Synthetic Substitute, Open Approach (ICD-10-PCS; principal; 2025-06-11 07:00)
DX: M17.11 Unilateral primary osteoarthritis, right knee (principal); G89.18 Other acute postprocedural pain; I10 Essential (primary) hypertension; E78.00 Pure hypercholesterolemia, unspecified; E05.90 Thyrotoxicosis, unspecified without thyrotoxic crisis or storm; Z87.891 Personal history of nicotine dependence; Z79.899 Other long term (current) drug therapy; Z88.0 Allergy status to penicillin; Z88.2 Allergy status to sulfonamides; Z88.8 Allergy status to other drugs, medicaments and biological substances
CPT/HCPCS: 0055T; 27447; 01402; 64447; 64450; 64454; 73560; 76942; 97110; 97161; 97530; A9270; C1713; C1776; J0688; J1100; J2003; J2704; J2795; J7121; J7999